=== PATIENT | female | born 2000 | race Caucasian/White ===

== ENCOUNTER 2019-11-03 21:25 | Inpatient (IN) | payer OTHER ==
[2019-11-03] MEDS ORDERED: DEXTROSE 5%-LACTATED RINGERS 500 ML IV ONE ×2 (22:30→23:30)
[2019-11-03] MEDS ORDERED: DEXTROSE 5%-LACTATED RINGERS 1,000 ML IV SCH (23:35)
[2019-11-04] MEDS ORDERED: AMPICILLIN SODIUM 2 GM VIAL ONE (00:18)
[2019-11-04] MEDS ORDERED: BUTORPHANOL TARTRATE 1 MG/ML VIAL ONE (00:20)
[2019-11-04] MEDS ORDERED: PROMETHAZINE HCL 25 MG/1 ML VIAL ONE (00:21)
[2019-11-04] MEDS ORDERED: BUTORPHANOL TARTRATE 1 MG/ML VIAL IVPB ONE (00:30)
[2019-11-04] MEDS ORDERED: PROMETHAZINE HCL 25 MG/1 ML VIAL IVPB ONE (00:30)
[2019-11-04] MEDS ORDERED: AMPICILLIN - 2 GM in SODIUM CHLORIDE 100 ML IVPB ONE (00:30)
[2019-11-04 00:54] LABS: BASO % 0.1 % (0-2.0); EOS % 0.4 % (0-4.5); HEMATOCRIT 38.9 % (32.4-45.2); HEMOGLOBIN 13.3 GM/dL (10.7-15.3); LYMPH % 13.6 % (8-40); MCH 32.2 pg (25.7-33.7); MCHC 34.3 g/dl (32.0-36.0); MEAN CELL VOLUME 93.8 fl (80-96); MEAN PLT VOLUME 11.2 fl (7.5-11.1); MONO % 7.1 % (3.8-10.2); NEUT % 78.8 % (42.8-82.8); PLATELET COUNT 125 K/MM3 (134-434); RBC 4.15 M/mm3 (3.60-5.2); RDW 13.2 % (11.6-15.6); WHITE BLOOD COUNT 9.9 K/mm3 (4.0-10.0)
[2019-11-04 01:10] LABS: INR 0.9 (0.83-1.09); PROTHROMBIN TIME (PATIENT) 10.6 SEC (9.7-13.0)
[2019-11-04 01:13] LABS: ACTIVATED PTT 28.4 SECONDS (25.2-36.5)
[2019-11-04 01:16] LABS: BLOOD UREA NITROGEN 10.9 mg/dL (7-18); CALCIUM 8.9 mg/dL (8.5-10.1); CREATININE 0.6 mg/dL (0.55-1.3); POTASSIUM 3.7 mmol/L (3.5-5.1)
[2019-11-04 01:54] VITALS: BMI 27.3
[2019-11-04] MEDS ORDERED: OXYTOCIN 20 UNITS in 0.9% NS 20 UNIT/1,000 ML INFUS.BAG IV ONE ×2 (03:19→10:03)
[2019-11-04] MEDS ORDERED: AMPICILLIN SODIUM 1 GM VIAL ONE (03:19)
[2019-11-04] MEDS: AMPICILLIN - 1 GM in SODIUM CHLORIDE 100 ML IVPB SCH ×2 (03:30→08:49)
[2019-11-04] MEDS ORDERED: ELECTROLYTE-148 SOLN 1,000 ML IV SCH (04:00)
[2019-11-04] MEDS ORDERED: FENTANYL/BUPIVACAINE/NS/PF - PCEA - 50 ML DISP.SYRIN EP ONE (04:15)
[2019-11-04] MEDS ORDERED: PCA PUMP NR ONE (04:17)
--- NOTE | 2019-11-04 04:18 | HP ---
Past Medical History - Admission History Source: Patient, Medical Record, Transfer Record - Past Medical History ...: 1 ...Para: 0 ...Term: 0 ...: 0 ...Spon : 0 ...Induced : 0 ...Living Children: 0 ...Multiple Gestation: 0 ...LMP: 01/23/19 ... Weeks Gestation by Dates: 40.4 ...EDC by Dates: 10/31/19 ...EDC by Sono: 11/09/19 - Past Surgical History Hx Myomectomy: No Hx Transabdominal Cerclage: No - Smoking History Smoking history: Never smoked Have you smoked in the past 12 months: No - Alcohol/Substance Use Hx Alcohol Use: No - Social History Usual Living Arrangement: Yes: With Significant Other (18 Y/O @ 40 +4 weks prsented complaning of contracrions) Home Medications - Allergies Allergies/Adverse Reactions: Allergies Allergy/AdvReac Type Severity Reaction Status Date / Time No Known Allergies Allergy Verified 11/01/19 23:10 - Home Medications Home Medications: Ambulatory Orders One Tablet 1 tab PO DAILY 11/01/19 Review of Systems - Review of Systems Constitutional: reports: No Symptoms Physical Exam - Maternity Vital Signs: Vital Signs Temperature 98.2 F 11/04/19 03:00 Pulse Rate 102 H 11/04/19 03:00 Respiratory Rate 20 11/04/19 03:00 Blood Pressure 138/82 11/04/19 03:00 O2 Sat by Pulse Oximetry (%) - Abdominal Exam/OB Fundal Height: 40 Number of Fetuses: Single Presentation: Vertex Contractions: Yes Regularity: Irregular Intensity: Mod/Strong Heart Rate (range): 140 Category: I Accelerations: Uniform Decelerations: None - Vaginal Exam/OB Vaginal Bleeding: No - Labs Lab Results: CBC, BMP 11/04/19 00:15 11/04/19 00:15 Problem List - Problems (1) 39 weeks gestation of Code(s): Z3A.39 - 39 WEEKS GESTATION OF Assessment/Plan 18 Y/O @ 39 weeks presented complaining of contractions, patient had irregular contractions Intial exam 1/L/P, then had SROM clear Patient admoted fro early labor with SROM, Abx ampicillin started for H/O GBS bacterurea VE: 9.5/100/-3, will labor down [place]: Q2 min FHR: Catg I A/P IUP 39+ SROM in labor Labor down Patient requesting epidural, anesthesia called
[2019-11-04] MEDS ORDERED: NALOXONE HCL 0.4 MG/ML VIAL IVPUSH PRN (04:41)
[2019-11-04] MEDS ORDERED: FENTANYL/BUPIVACAINE/NS/PF - PCEA - 50 ML DISP.SYRIN EP SCH (04:45)
[2019-11-04] MEDS ORDERED: OXYTOCIN 30 UNITS in 0.9% NS 30 UNIT/500 ML INFUS.BAG IVPB SCH ×2 (06:30→06:45)
[2019-11-04] MEDS ORDERED: OXYTOCIN 30 UNITS in 0.9% NS 30 UNIT/500 ML INFUS.BAG IVPB ONE (06:34)
--- NOTE | 2019-11-04 06:43 | PN ---
Progress Note (short form) - Note Progress Note: Patient examiend at bed side S/P epidural VE /0 [place] Irregular contractions FHR: Catg I A/P will start pitocin augmentation start pushing Anticipating Problem List - Problems (1) 39 weeks gestation of Code(s): Z3A.39 - 39 WEEKS GESTATION OF
[2019-11-04] MEDS ORDERED: OXYTOCIN 20 UNITS in 0.9% NS 20 UNIT/1,000 ML INFUS.BAG IV SCH (07:00)
--- NOTE | 2019-11-04 07:27 | PN ---
Delivery - Delivery Vaginal Delivery: No Problems Type of Anesthesia: Epidural Episiotomy/Laceration: Periurethral Extnsion/lac EBL (cc): 300 ( live baby boy, APGARS 9/9, placenta deliverd spontanous intact, 1st degree laceration repaired with 2-O chromic) Delivery, Single - Stages of Labor Placenta: Yes: Spontaneous - Condition of Infant Sales And Marketing Assistant/Mission Planner Present: No Infant Gender: Male Position: OA ( live baby boy compound prsentation, APGARS 9/9, placenta deliverd spontanous intact, 1st degree laceration repaired with 2-O chromic) - Feeding Plan Initial Plan: Elected not to breastfeed exclusively throughout hospitalization Remarks - Remarks Remarks: live baby boy compound presentation, APGARS 9/9, placenta delivered spontaneous intact, 1st degree laceration repaired with 2-O chromic, EBL 300ml
[2019-11-04] MEDS ORDERED: BISACODYL 10 MG SUPP.RECT RC PRN (07:28)
[2019-11-04] MEDS ORDERED: BENZOCAINE 28 GM HEMORRHOIDAL OINTMENT TP PRN (07:28)
[2019-11-04] MEDS ORDERED: WITCH HAZEL 50% (TUCKS) 40 PAD/JAR PAD TP PRN (07:28)
[2019-11-04] MEDS ORDERED: BENZOCAINE 20% 57 GM BOTTLE TP PRN (07:28)
[2019-11-04] MEDS ORDERED: D5W-LR W/ 20 UNITS OXYTOCIN 20 UNIT/1,000 ML INFUS.BAG IV SCH (07:30)
[2019-11-04] MEDS ORDERED: ACETAMINOPHEN 325 MG TABLET (FP) ONE (09:23)
[2019-11-04] MEDS ORDERED: IBUPROFEN 600 MG TABLET (FP) PO ONE (09:23)
[2019-11-04] MEDS: ACETAMINOPHEN 325 MG TABLET (FP) PO PRN ×2 (09:25→14:03)
[2019-11-04] MEDS: IBUPROFEN 600 MG TABLET (FP) PO PRN ×2 (09:25→14:04)
[2019-11-04] MEDS: PRENATAL VITAMINS W/ FOLIC ACID TABLET (FP) PO SCH (11:10)
[2019-11-04] MEDS: FERROUS SO4 325 MG TABLET (FP) PO SCH ×2 (11:10→21:32)
--- NOTE | 2019-11-05 07:47 | PN ---
Post Progress Note Type of Delivery: Vital Signs: Vital Signs Temperature 99 F 11/05/19 01:54 Pulse Rate 59 L 11/05/19 01:54 Respiratory Rate 20 11/05/19 01:54 Blood Pressure 131/72 11/05/19 01:54 O2 Sat by Pulse Oximetry (%) 100 11/05/19 01:54 Breast Exam: Yes: Soft Uterus: Yes: Fundus Firm Abdomen/GI: Yes: Abdomen soft Lochia: Yes: Rubra Lochia, amount: Small Extremities: Yes: Calves non-tender Perineum: Yes: Intact Activity: Ambulating - Labs Labs: CBC WBC 9.9 K/mm3 (4.0-10.0) 11/04/19 00:15 RBC 4.15 M/mm3 (3.60-5.2) 11/04/19 00:15 Hgb 13.3 GM/dL (10.7-15.3) 11/04/19 00:15 Hct 38.9 % (32.4-45.2) 11/04/19 00:15 MCV 93.8 fl (80-96) 11/04/19 00:15 MCH 32.2 pg (25.7-33.7) 11/04/19 00:15 MCHC 34.3 g/dl (32.0-36.0) 11/04/19 00:15 RDW 13.2 % (11.6-15.6) 11/04/19 00:15 Plt Count 125 K/MM3 (134-434) L 11/04/19 00:15 MPV 11.2 fl (7.5-11.1) H 11/04/19 00:15 Absolute Neuts (auto) 7.8 K/mm3 (1.5-8.0) 11/04/19 00:15 Neutrophils % 78.8 % (42.8-82.8) 11/04/19 00:15 Lymphocytes % 13.6 % (8-40) 11/04/19 00:15 Monocytes % 7.1 % (3.8-10.2) 11/04/19 00:15 Eosinophils % 0.4 % (0-4.5) 11/04/19 00:15 Basophils % 0.1 % (0-2.0) 11/04/19 00:15 Nucleated RBC % 0 % (0-0) 11/04/19 00:15 Problem List - Problems (1) 39 weeks gestation of Assessment/Plan: PPD#1, Patient seen and examined at bed side, S/P doing well, has no complaints, patient ambulating, voiding, passed flatus. PE: AO X3 in NAD HEENT: NC/AT, Supple Chest: CTA BL ABDOMEN : Soft, NT, ND, Uterus Firm below the umbilicus, +ve BS EXT: negative Hialry's BL Vagina: Normal Lochia VS: WNL PP: Pending A/P PPD#1 S/P doing well, has no complaints OOB Ambulating, voiding, passed flatus. Patient wants Baby Circumcision, informed consent obtained and witnessed. Will Dc patient home tomorrow if continue to be stable F/U in [facility] [place] in 6 weeks for PP check. Problems reviewed: Yes Code(s): Z3A.39 - 39 WEEKS GESTATION OF
--- NOTE | 2019-11-05 07:57 | DS ---
Physical Exam-RENTAL MANAGEMENT TRAINEE Vital Signs: Vital Signs Temperature 99 F 11/05/19 01:54 Pulse Rate 59 L 11/05/19 01:54 Respiratory Rate 20 11/05/19 01:54 Blood Pressure 131/72 11/05/19 01:54 O2 Sat by Pulse Oximetry (%) 100 11/05/19 01:54 Constitutional: Yes: Well Nourished Eyes: Yes: WNL HENT: Yes: WNL Neck: Yes: WNL Cardiovascular: Yes: WNL Respiratory: Yes: WNL Gastrointestinal: Yes: WNL ...Rectal Exam: Yes: WNL Renal/: Yes: WNL (PPD#1, Patient seen and examined at bed side, S/P doing well, has no complaints, patient ambulating, voiding, passed flatus. PE: AO X3 in NAD HEENT: NC/AT, Supple Chest: CTA BL ABDOMEN : Soft, NT, ND, Uterus Firm below the umbilicus, +ve BS EXT: negative Hilary's BL Vagina: Normal Lochia VS: WNL PP: Pending A/P PPD#1 S/P doing well, has no complaints OOB Ambulating, voiding, passed flatus. Patient wants Baby Circumcision, informed consent obtained and witnessed. Will Dc patient home tomorrow if continue to be stable F/U in [facility] in 6 weeks for PP check.) Pelvis: Yes: WNL External Genitalia: Yes: Normal (PPD#1, Patient seen and examined at bed side, S/P doing well, has no complaints, patient ambulating, voiding, passed flatus. PE: AO X3 in NAD HEENT: NC/AT, Supple Chest: CTA BL ABDOMEN : Soft, NT, ND, Uterus Firm below the umbilicus, +ve BS EXT: negative Hilary's BL Vagina: Normal Lochia VS: WNL PP: Pending A/P PPD#1 S/P doing well, has no complaints OOB Ambulating, voiding, passed flatus. Patient wants Baby Circumcision, informed consent obtained and witnessed. Will Dc patient home tomorrow if continue to be stable F/U in [facility] in 6 weeks for PP check.) Uterus: Yes: Firm ....Post : Yes: Uterus firm, Uterus non-tender, Slight lochia rubra Breast(s): Yes: WNL Labs: CBC, BMP 11/04/19 00:15 11/04/19 00:15 Delivery - Delivery Vaginal Delivery: No Problems Type of Anesthesia: Epidural Episiotomy/Laceration: Periurethral Extnsion/lac EBL (cc): 300 Delivery, Single - Stages of Labor Date 1st Stage Initiatied: 11/03/19 Time 1st Stage Initiated: 19:00 Date 2nd Stage Initiated: 11/03/19 Time 2nd Stage Initiated: 23:25 Date of Delivery: 11/04/19 Time of Delivery: 06:59 Time Placenta Delivered: 07:04 Placenta: Yes: Spontaneous - Condition of Die Sinker Apprentice/Stereoplotter Operator Present: No Infant Gender: Male Weight: 3.629 kg Position: OA Total Hours ROM (Hrs/Mins): 7 HOURS/ 39 MINUTES - 1 Minute Total Score: 9 5 Minutes Total Score: 9 - Feeding Plan Initial Plan: Elected not to breastfeed exclusively throughout hospitalization Remarks - Remarks Remarks: PPD#1, Patient seen and examined at bed side, S/P doing well, has no complaints, patient ambulating, voiding, passed flatus. PE: AO X3 in NAD HEENT: NC/AT, Supple Chest: CTA BL ABDOMEN : Soft, NT, ND, Uterus Firm below the umbilicus, +ve BS EXT: negative Hilary's BL Vagina: Normal Lochia VS: WNL PP: Pending A/P PPD#1 S/P doing well, has no complaints OOB Ambulating, voiding, passed flatus. Patient wants Baby Circumcision, informed consent obtained and witnessed. Will Dc patient home tomorrow if continue to be stable F/U in [facility] in 6 weeks for PP check. Discharge Summary Problems reviewed: Yes Reason For Visit: LABOR ADMIT Procedures: Principal: PPD#1, Patient seen and examined at bed side, S/P doing well, has no complaints, patient ambulating, voiding, passed flatus. PE: AO X3 in NAD. HEENT: NC/AT, Supple. Chest: CTA BL. ABDOMEN : Soft, NT, ND, Uterus Firm below the umbilicus, +ve BS. EXT: negative Hilary's BL. Vagina: Normal Lochia. VS: WNL. PP: Pending. A/P. PPD#1 S/P doing well, has no complaints. OOB. Ambulating, voiding, passed flatus. Patient wants Baby Circumcision, informed consent obtained and witnessed. Will Dc patient home tomorrow if continue to be stable. [facility] [place] in 6 weeks for PP check. Hospital Course: Condition: Stable - Instructions Disposition: HOME - Home Medications Comprehensive Discharge Medication List: Ambulatory Orders One Tablet 1 tab PO DAILY 11/01/19 Prescription Drug Monitoring Program (I-STOP) results: I-STOP reviewed and no i ssues identified
[2019-11-05 08:53] LABS: BASO % 0.3 % (0-2.0); EOS % 0.2 % (0-4.5); HEMATOCRIT 36.1 % (32.4-45.2); HEMOGLOBIN 11.9 GM/dL (10.7-15.3); LYMPH % 13.8 % (8-40); MCH 31.1 pg (25.7-33.7); MEAN CELL VOLUME 94.1 fl (80-96); MEAN PLT VOLUME 10.4 fl (7.5-11.1); MONO % 6.9 % (3.8-10.2); NEUT % 78.8 % (42.8-82.8); PLATELET COUNT 113 K/MM3 (134-434); RBC 3.83 M/mm3 (3.60-5.2); RDW 13.5 % (11.6-15.6); WHITE BLOOD COUNT 14.4 K/mm3 (4.0-10.0)
[2019-11-05] MEDS: FERROUS SO4 325 MG TABLET (FP) PO SCH ×2 (09:12→21:09)
[2019-11-05] MEDS: PRENATAL VITAMINS W/ FOLIC ACID TABLET (FP) PO SCH (09:12)
[2019-11-05] MEDS ORDERED: SENNOSIDES/DOCUSATE COMBO (SENNA PLUS) TABLET (UD) PO PRN (22:00)
[2019-11-05 22:18] VITALS: PULSE 69; TEMP 97.5
[2019-11-06] MEDS: ACETAMINOPHEN 325 MG TABLET (FP) PO PRN (07:56)
[2019-11-06] MEDS: IBUPROFEN 600 MG TABLET (FP) PO PRN (07:56)
[2019-11-06] MEDS: PRENATAL VITAMINS W/ FOLIC ACID TABLET (FP) PO SCH (10:28)
[2019-11-06] MEDS: FERROUS SO4 325 MG TABLET (FP) PO SCH (10:28)
--- NOTE | 2019-11-06 11:00 | PN ---
Progress Note (short form) - Note Progress Note: PPD#2, Patient seen and examined at bed side, S/P doing well, has no complaints, patient ambulating, voiding, passed flatus. PE: AO X3 in NAD HEENT: NC/AT, Supple Chest: CTA BL ABDOMEN : Soft, NT, ND, Uterus Firm below the umbilicus, +ve BS EXT: negative Hilary's BL Vagina: Normal Lochia VS: WNL PP: 11.5/36.5 A/P PPD#2 S/P doing well, has no complaints OOB Ambulating, voiding, passed flatus & BM. Baby Circumcision done Will Dc patient home today as continue to be stable F/U in [facility] [place] in 6 weeks for PP check. CBC, BMP 11/05/19 08:08 11/04/19 00:15 Problem List - Problems (1) 39 weeks gestation of Code(s): Z3A.39 - 39 WEEKS GESTATION OF
[2019-11-06 15:00] VITALS: BP 130/85
== END 2019-11-06 13:30 | disposition home or self-care (01) | DRG 560 ==
LOC: JDEL 21:25 → JLDR 23:25 → J3W 11-04 10:30
PROVIDERS: ADMIT Internal Medicine; ATTEND Internal Medicine
PROC: 10E0XZZ Delivery of Products of Conception, External Approach (ICD-10-PCS; principal; 2019-11-04)
PROC: 0W8NXZZ Division of Female Perineum, External Approach (ICD-10-PCS; 2019-11-04)
PROC: 0HQ9XZZ Repair Perineum Skin, External Approach (ICD-10-PCS; 2019-11-04)
DX: O32.6XX0 Maternal care for compound presentation, not applicable or unspecified (principal); O70.0 First degree perineal laceration during delivery; Z3A.39 39 weeks gestation of pregnancy; Z37.0 Single live birth
CPT/HCPCS: 36415; 59409; 80048; 85025; 85610; 85730; 86762; 86780; 86850; 86900; 86901; 87389; U0003

== ENCOUNTER 2020-08-05 21:12 | Emergency (ER) | payer OTHER ==
[2020-08-05 21:25] VITALS: TEMP 98.6; BMI 20.3
[2020-08-05 23:01] LABS: BASO % 0.4 % (0-2.0); EOS % 1.4 % (0-4.5); HEMATOCRIT 41.4 % (32.4-45.2); HEMOGLOBIN 14.1 GM/dL (10.7-15.3); LYMPH % 24.5 % (8-40); MCH 30.9 pg (25.7-33.7); MCHC 34.1 g/dl (32.0-36.0); MEAN CELL VOLUME 90.5 fl (80-96); MEAN PLT VOLUME 8.3 fl (7.5-11.1); MONO % 8.9 % (3.8-10.2); NEUT % 64.8 % (42.8-82.8); PLATELET COUNT 228 K/MM3 (134-434); RBC 4.58 M/mm3 (3.60-5.2); RDW 13.3 % (11.6-15.6); WHITE BLOOD COUNT 9.1 K/mm3 (4.0-10.0)
[2020-08-05 23:34] LABS: PH,URINE 8.5 (5.0-8.0); URINE APPEARANCE Turbid; URINE BILIRUBIN 2+ (NEGATIVE); URINE COLOR Red; URINE GLUCOSE (UA) Trace (NEGATIVE); URINE KETONE Trace (NEGATIVE); URINE LEUK ESTERASE Negative (NEGATIVE); URINE NITRITE Positive (NEGATIVE); URINE PROTEIN 3+ (NEGATIVE)
[2020-08-06] MEDS ORDERED: CEFTRIAXONE 1 GM in DEXTROSE 5%-WATER - 50 ML IVPB ONE (01:13)
[2020-08-06] MEDS ORDERED: SODIUM CHLORIDE 0.9% 500 ML INFUS.BAG IV ONE (01:13)
[2020-08-06] MEDS ORDERED: CEFTRIAXONE 1 GM/50 ML BAG ONE (01:18)
[2020-08-06 01:50] VITALS: BP 109/65; PULSE 101
== END 2020-08-06 02:26 | disposition home or self-care (01) ==
LOC: JER 21:12
DX: O73.1 Retained portions of placenta and membranes, without hemorrhage (principal)
CPT/HCPCS: 36415; 76830-TC; 81003; 84702; 85025; 86850; 86900; 86901; 87086; 99285-25

== ENCOUNTER 2023-10-11 17:15 | Emergency (ER) | payer OTHER ==
[2023-10-11 17:25] VITALS: BP 134/83; PULSE 73; RESP 18; TEMP 98.3; BMI 24.7
[2023-10-11] MEDS ORDERED: TETRACAINE 0.5% OPHTH SOLN 2 ML BOTTLE ONE (18:11)
[2023-10-11] MEDS ORDERED: FLUORESCEIN NA 1 EA STRIP ONE (18:11)
[2023-10-11] MEDS: FLUORESCEIN NA 1 EA STRIP OS ONE (18:25)
[2023-10-11] MEDS: TETRACAINE 0.5% HCL 0.6ML DROPPER.BOTTLE OS ONE (18:25)
[2023-10-11] MEDS: ERYTHROMYCIN 0.5% OPHTHALMIC OINTMENT 3.5 GM TUBE OS SCH (18:32)
== END 2023-10-11 18:59 | disposition home or self-care (01) ==
LOC: JER 17:15 → JERFT 17:15
DX: S05.02XA Injury of conjunctiva and corneal abrasion without foreign body, left eye, initial encounter (principal); H57.12 Ocular pain, left eye; H53.8 Other visual disturbances; X58.XXXA Exposure to other specified factors, initial encounter
CPT/HCPCS: 99283-25